=== PATIENT | female | born 1930 | race Caucasian/White ===

== ENCOUNTER → 2017-02-08 | Outpatient (CLI) | payer MEDICARE, OTHER ==
--- NOTE | 2017-02-21 10:48 | HKNOTE ---
DATE OF SERVICE: 02/08/2017 CHIEF COMPLAINT: Pain in the right knee. DIAGNOSIS: Degenerative osteoarthritis of the right knee. HISTORY OF PRESENT ILLNESS: Patient was last seen in June 2017. She was given a cortisone injection into the knee, which lasted for 6 months. The pain returned a month ago. Patient comes in requesting a repeat cortisone injection into the knee. PHYSICAL EXAMINATION: Clinically the knee has signs suggestive of osteoarthritis. IMAGING STUDIES: Imaging of her right knee was reviewed and this shows [id number] degenerative osteoarthritis. MANAGEMENT: Under sterile condition, given an injection of 2 cc of Kenalog, 6 cc of 2 percent lidocaine into the right knee and she will be seen again as necessary. Dictated By: Jose Francisco Luque MD /renee/edson /Document#: [id number]
== END | disposition home or self-care (01) ==
LOC: HKI 13:56
DX: M17.11 Unilateral primary osteoarthritis, right knee (principal)
CPT/HCPCS: 20610; G0463

== ENCOUNTER → 2017-03-14 | Outpatient (CLI) | payer MEDICARE, OTHER ==
--- NOTE | 2017-03-15 09:16 | RADRPT ---
PROCEDURE: Right knee x-ray CLINICAL INDICATION: GENI N TECHNIQUE: AP, lateral, and sunrise views of the knee were obtained. COMPARISON: Plain radiographs of the right knee from 07/19/2016 FINDINGS: No acute fracture or dislocation is seen. There is normal mineralization. There is stable mild to moderate narrowing of the medial compartment. There is no joint effusion. There is no significant soft tissue swelling. IMPRESSION: Stable mild to moderate narrowing of the medial compartment. RPTAT: EE Physician Jennifer Date Time Electronically viewed and signed by Tommy Roman Physician on 03/15/2017 09:16 /
--- NOTE | 2017-03-16 23:01 | HKNOTE ---
DATE OF SERVICE: 03/16/2017 MAIN COMPLAINT: Pain in the left knee. HISTORY OF MAIN COMPLAINT: The patient is a patient 86-year-old female, who was seen about a month ago. I injected a pes bursa with cortisone. She states the knee gradually became better after a day or two. The pain has now returned and she would like a repeat injection. PHYSICAL EXAMINATION: On physical examination, she has classic pes tendonitis. MANAGEMENT: Under sterile conditions, she is given injection of 80 mg of Kenalog and 10 mL of 2 percent lidocaine. She will be seen again as necessary. Dictated By: Jose Francisco Luque MD /renee/tigre /Document#: [id number]
== END | disposition home or self-care (01) ==
LOC: HKI 15:47
DX: M25.562 Pain in left knee (principal)
CPT/HCPCS: 20610; 73562; G0463

== ENCOUNTER → 2017-11-20 | Outpatient (CLI) | END | disposition home or self-care (01) ==